=== PATIENT | female | born 1980 | race Two or more races ===

== ENCOUNTER 2024-03-19 08:32 | Emergency (ER) | payer MEDICAID, OTHER ==
[~2024-03-19] VITALS: Ht 162.6 cm; Wt 96.3 kg
[2024-03-19] MEDS: ACETAMINOPHEN 500 MG TAB PO ONE (10:08)
[2024-03-19 10:13] LABS: Urine Bacteria None Seen /hpf (None Seen)
[2024-03-19 10:25] LABS: Urine Blood 1+ /uL (Negative); Urine Clarity Clear (Clear); Urine Color Yellow (Yellow); Urine Mucus FEW (None Seen); Urine Protein, UAD 1+ (Negative); Urine Specific Gravity 1.023 (1.001-1.035); Urine Urobilinogen Normal (Negative); Urine WBC 1 /hpf (0 - 5)
[2024-03-19 11:29] VITALS: BP 119/79; PULSE 100; RESP 18; TEMP 98.7; O2SAT 98
[2024-03-19] MEDS ORDERED: NABU-72 PO (11:33)
[2024-03-19] MEDS ORDERED: CYCL-837 PO (11:33)
== END 2024-03-19 11:34 | disposition home or self-care (01) ==
LOC: ER 08:32
DX: M54.50 Low back pain, unspecified (principal); Z79.899 Other long term (current) drug therapy
CPT/HCPCS: 72100; 81001; 87086

== ENCOUNTER 2024-09-13 08:34 | Day surgery (SDC) | payer MEDICAID ==
[2024-09-11 14:43] LABS: Urine Bacteria None Seen /hpf (None Seen)
[2024-09-11 14:59] LABS: Basophils # (auto) 0.1 10 ^3/uL (0-0.2); Basophils % (auto) 0.7 % (0.0-2.0); Eosinophils # (auto) 0.3 10 ^3/uL (0-0.8); Eosinophils % (auto) 3.6 % (0.0-7.0); Hematocrit 38.3 % (36.0-46.0); Hemoglobin 13.2 g/dL (12.2-16.2); Lymphocytes # (auto) 2.3 10 ^3/uL (0.4-5.4); Lymphocytes % (auto) 31.3 % (10.0-50.0); Mean Corpuscular Hemoglobin 31.1 pg (28.0-32.0); Mean Corpuscular Hgb Conc. 34.4 g/dL (32.0-36.0); Mean Corpuscular Volume 90.5 fL (80.0-100.0); Monocytes # (auto) 0.6 10 ^3/uL (0-1.3); Monocytes % (auto) 8.4 % (0.0-12.0); Neutrophils # (auto) 4.1 10 ^3/uL (1.6-8.6); Platelet Count (auto) 256 10^3/uL (140-450); Red Blood Cells 4.23 10^6/uL (4.0-5.20); Red Cell Distribution Width 14.9 % (11.8-14.3); White Blood Cell 7.3 10^3/uL (4.4-10.8)
[2024-09-11 15:20] LABS: INR 0.99 (0.9-1.15); Prothrombin Time 10.5 sec (9.3-11.8)
[2024-09-11 15:33] LABS: Urine Blood TRACE /uL (Negative); Urine Clarity Clear (Clear); Urine Color Light-Yellow (Yellow); Urine Protein, UAD Negative (Negative); Urine Specific Gravity 1.013 (1.001-1.035); Urine Urobilinogen Normal (Negative); Urine WBC <1 /hpf (0 - 5); Urine pH 6.5 (5.0-9.0)
[2024-09-11 15:40] LABS: Alanine Aminotransferase 28 U/L (7-40); Albumin 4.1 g/dL (3.2-4.8); Alkaline Phosphatase 81 U/L (46-116); Anion Gap 7 (5-15); Aspartate Aminotransferase 24 U/L (13-40); BUN/Creatinine Ratio 10.3 (10.0-20.0); Bilirubin, Total 0.5 mg/dL (0.2-1.0); Blood Urea Nitrogen 9 mg/dL (9-23); Calcium 9.5 mg/dL (8.7-10.4); Carbon Dioxide 26 mmol/L (20-31); Chloride 108 mmol/L (98-107); Glucose 87 mg/dL (74-106); Potassium 4.3 mmol/L (3.5-5.1); Sodium 141 mmol/L (136-145); Total Protein 7.1 g/dL (5.7-8.2)
[~2024-09-13] VITALS: Ht 162.6 cm; Wt 97.1 kg
[~2024-09-13 08:34] MED LIST: CHOL20007 PO; CYCL-837 PO; LEVO100T8 PO; MELO15TA29 PO; METH2.5T PO; NABU-72 PO; PANT40TA2 PO; PRE5T PO
[2024-09-13] MEDS ORDERED: ceFAZolin 2 GM/D5W100ml 100 ML IV ONE (09:24)
[2024-09-13] MEDS ORDERED: fentaNYL CITRATE 100 MCG/2 ML VL ONE (09:39)
[2024-09-13] MEDS ORDERED: GLYCOPYRROLATE 0.2 MG/ML 1ML VIAL ONE (09:39)
[2024-09-13] MEDS ORDERED: PROPOFOL 10 MG/ML 20 ML IV ONE ×2 (09:39→10:35)
[2024-09-13] MEDS ORDERED: DexAMETHasone SOD PHOS 10MG/1ML VIAL INJ ONE (09:39)
[2024-09-13] MEDS ORDERED: KETOROLAC TROMETH 30 MG/ML 1ML VIAL ONE (09:39)
[2024-09-13] MEDS ORDERED: ONDANSETRON HCL 4 MG/2 ML VIAL ONE (09:39)
[2024-09-13] MEDS ORDERED: LIDOCAINE 2% (LOCAL ANESTH.) PF 5ml SDV ONE (09:39)
[2024-09-13] MEDS ORDERED: ACETAMINOPHEN IV 1000 MG/100ML (10MG/ML) IV ONE (10:15)
[2024-09-13] MEDS ORDERED: GABAPENTIN 400 MG CAP PO ONE (10:15)
[2024-09-13] MEDS ORDERED: CELECOXIB 100 MG CAP PO ONE (10:15)
[2024-09-13] MEDS: BUPIVACAINE 0.5% P/F INJ 10 ML VIAL ONE (10:40)
[2024-09-13 11:50] VITALS: PULSE 103; RESP 12; TEMP 98.8; O2SAT 98
--- NOTE | 2024-09-13 11:53 | DVHOP2 ---
Operative Report - 2 Report Details Date: 09/13/24 Preop Diagnosis: 1. Right foot bunion 2. Right foot hammer toes 2-4 3. Right foot tailors bunion 4. Right foot pain Postop Diagnosis: Same as preop Surgeon: Susie Wheeler MD Anesthesiologist: See anesthesia Anesthesia: General Implant: 6 2 K-wire x2 Arthrex K-wires x3 Consent: The patient was informed of the risks and benefits of the procedure. These include but are not limited to complications of anesthesia, postoperative infection, incomplete relief of symptoms, recurrence of symptoms, damage to blood vessels, nerves and tendons, deep venous thrombosis, pulmonary embolism and possible need for repeat surgery in the future. Complications: None Estimated Blood Loss: Minimal Fluids: See anesthesia Findings: Consistent with the diagnosis Indications for Surgery: Worsening right foot pain Name of Procedure Performed 1. Right foot bunionectomy (45425) 2. Right foot hammer toe repair 2nd toe (58571) 3. Right foot hammer toe repair 3rd toe (07184) 4. Right foot hammer toe repair 4th toe (45194) 5. Right foot tailors bunionectomy (51821) Procedure Details Procedure Details: PRE-PROCEDURE INFORMATION: In the pre-op holding area, the extremity to be operated on was clearly marked and the patient verified correct laterality of the marking. The patient was transferred to the OR table and placed in a supine position. A timeout was performed in which identification of the correct patient, procedure, location, and materials was done. The right foot and leg w ere prepped and draped in normal sterile fashion. The foot and leg were exsanguinated and the thigh tourniquet was inflated to 250 mmHg. DESCRIPTION OF PROCEDURE: Attention was directed to the right 1st metatar sophalangeal joint where a stab incision was made at the neck of the 1st metatarsal. Care was taken to avoid damage the neurovascular and tendinous structures. Using intraoperative fluoroscopy and an MIS per, an osteotomy was then made at the neck of the 1st metatarsal. The metatarsal head was then shifted into position aligning the sesamoid bones over the fragment. Using a 6 2 K-wire, the wire was then driven down the shaft of the 1st metatarsal to hold the head in place until the osteotomy has healed. Fluoroscopy verified proper placement of hardware as well as correction of previous bunion deformity. Attention was directed to the right lateral fifth metatarsal head where a stab incision was made. This incision was deepened through blunt and sharp di ssection. Care was taken to avoid damage to neurovascular structures throughout dissection. The incision was carried to the level of the fifth metatarsal head where on intraoperative fluoroscopy as well as preoperative x-rays, it was noted there was no significantly increased lateral deviation angle of the fifth metatarsal, but the lateral aspect of the fifth metatarsal head appeared to be prominent. This indicated that the patient would benefit from an ostectomy of the metatarsal head without osteotomy. Using an MIS bur, an osteotomy was made across the neck of the metatarsal head. Using a 0.62 K wire, the wire was then placed down the shaft of the 5th metatarsal holding the head in the appropriate position. It was noted on intraoperative fluoroscopy, there was significant reduction of deformity Attention was directed to the right dorsal 2nd digit where a linear longitudinal incision was made over the proximal interphalangeal joint gaining access to the joint. The incision was deepened to the level of the extensor tendon. Soft tissue was released about the IPJ. The extensor tendon was transected at the level of the IPJ and using an oscillating saw, the head of the proximal phalanx was resected. Next, the base of the middle phalanx was also resected with an oscillating saw. A K-wire was driven from the distal digit to the level of the proximal phalanx. Utilizing intraoperative fluoroscopy, proper placement of the k-wire with adequate compression of the interphalangeal joint was noted. The end of the k- wire was clipped and bent at the tip, in anticipation that it will be removed in-office at a later time. It was noted on intraoperative fluoroscopy as well as clinically after this hammertoe was corrected that the digit was no longer contracted about the PIPJ or DIPJ Attention was directed to the right dorsal 3rd digit where a linear longitudinal incision was made over the proximal interphalangeal joint gaining access to the joint. The incision was deepened to the level of the extensor tendon. Soft tiss ue was released about the IPJ. The extensor tendon was transected at the level of the IPJ and using an oscillating saw, the head of the proximal phalanx was resected. Next, the base of the middle phalanx was also resected with an oscillating saw. A K-wire was driven from the distal digit to the level of the proximal phalanx. Utilizing intraoperative fluoroscopy, proper placement of the k-wire with adequate compression of the interphalangeal joint was noted. The end of the k- wire was clipped and bent at the tip, in anticipation that it will be removed in-office at a later time. It was noted on intraoperative fluoroscopy as well as clinically after this hammertoe was corrected that the digit was no longer contracted about the PIPJ or DIPJ Attention was directed to the right dorsal 4th digit where a linear longitudinal incision was made over the proximal interphalangeal joint gaining access to the joint. The incision was deepened to the level of the extensor tendon. Soft tissue was released about the IPJ. The extensor tendon was transected at the level of the IPJ and using an oscillating saw, the head of the proximal phalanx was resected. Next, the base of the middle phalanx was also resected with an oscillating saw. A K-wire was driven from the distal digit to the level of the proximal phalanx. Utilizing intraoperative fluoroscopy, proper placement of the k-wire with adequate compression of the interphalangeal joint was noted. The end of the k- wire was clipped and bent at the tip, in anticipation that it will be removed in-office at a later time. It was noted on intraoperative fluoroscopy as well as clinically after this hammertoe was corrected that the digit was no longer contracted about the PIPJ or DIPJ All surgical wounds were irrigated copiously with saline and closed in layers with 2-0 Vicryl, 3-0 Monocryl, 4-0 nylon suture material. A dry sterile dressing was placed on the surgical extremity. The patient was placed in a postop shoe. POSTOPERATIVE INFORMATION: The patient tolerated the above noted procedure and anesthesia well and was transferred to the PACU with vital signs stable, and vascular status intact with capillary refill intact to all digits. Postoperative instructions reviewed in detail with the patient with written instructions provided. Patient will return to clinic in approximately 10-14 days for first postoperative visit. Patient has the number of the clinic and was instructed to call prior to that time should any problems, questions, or concerns arise. Condition Good Disposition Home SUSIE WHEELER DPM Sep 13, 2024 11:53
[2024-09-13] MEDS ORDERED: NALOXONE HCL 0.4 MG/ML VIAL IV PRN (12:00)
[2024-09-13] MEDS ORDERED: FLUMAZENIL 0.1 MG/ML INJ 10ML MDV IV PRN (12:00)
[2024-09-13] MEDS ORDERED: ePHEDrine SULFATE 50 MG/ML AMP IV PRN (12:00)
[2024-09-13] MEDS ORDERED: hydrALAZINE HCL 20 MG/ML VL IV PRN (12:00)
[2024-09-13] MEDS ORDERED: fentaNYL CITRATE 100 MCG/2 ML VL IV PRN (12:00)
[2024-09-13] MEDS ORDERED: oxyCODONE HCL 5MG TAB PO PRN (12:00)
[2024-09-13] MEDS ORDERED: HYDROmorphone HCL 2 MG/ML VL/or syr IV PRN (12:00)
[2024-09-13] MEDS ORDERED: ONDANSETRON HCL 4 MG/2 ML VIAL IV PRN (12:00)
[2024-09-13 12:30] VITALS: BP 122/77; PULSE 86; RESP 17; O2SAT 96
== END 2024-09-13 12:50 | disposition home or self-care (01) ==
LOC: SUR 08:34
PROVIDERS: ATTEND Podiatrist
DX: M20.41 Other hammer toe(s) (acquired), right foot (principal); M21.611 Bunion of right foot; M21.621 Bunionette of right foot; K21.9 Gastro-esophageal reflux disease without esophagitis; M06.9 Rheumatoid arthritis, unspecified; E03.9 Hypothyroidism, unspecified; E66.01 Morbid (severe) obesity due to excess calories; Z98.890 Other specified postprocedural states; Z68.36 Body mass index [BMI] 36.0-36.9, adult; Z90.49 Acquired absence of other specified parts of digestive tract; Z79.899 Other long term (current) drug therapy; Z79.890 Hormone replacement therapy
CPT/HCPCS: 28285; 28296; 28308; 36415; 80053; 81001; 84702; 85025; 85610; 85730; C1713; J1100; J1885; J2003; J2405; J2704; J3010; J3490

== ENCOUNTER 2025-07-18 11:16 | Day surgery (SDC) | payer MEDICAID ==
[2025-07-13 11:12] LABS: Hematocrit 40.7 % (36.0-46.0); Hemoglobin 13.4 g/dL (12.2-16.2); Mean Corpuscular Hemoglobin 30.1 pg (28.0-32.0); Mean Corpuscular Volume 91.4 fL (80.0-100.0); Nucleated Red Blood Cells % 0.0 %
[2025-07-13 11:18] LABS: Urine Protein, UAD Negative (Negative)
[2025-07-13 11:28] LABS: INR 1.0 (0.9-1.15); Partial Thromboplastin Time 28.9 SEC (24.5-34.5); Prothrombin Time 10.6 sec (9.3-11.8)
[2025-07-13 12:14] LABS: Alanine Aminotransferase 14 U/L (7-40); Alkaline Phosphatase 76 U/L (46-116); Anion Gap 7 (5-15); BUN/Creatinine Ratio 7.6 (10.0-20.0); Calcium 9.1 mg/dL (8.7-10.4); Carbon Dioxide 29 mmol/L (20-31); Chloride 106 mmol/L (98-107); Glucose 75 mg/dL (74-106); Potassium 4.4 mmol/L (3.5-5.1); Sodium 142 mmol/L (136-145); Total Protein 7.2 g/dL (5.7-8.2)
[2025-07-13 12:15] LABS: Albumin 4.2 g/dL (3.2-4.8); Bilirubin, Total 0.8 mg/dL (0.2-1.0)
[2025-07-13 12:17] LABS: Blood Urea Nitrogen 6 mg/dL (9-23)
[~2025-07-18] VITALS: Ht 162.6 cm; Wt 95.3 kg
[~2025-07-18 11:16] MED LIST changes: -CHOL20007 PO; +CHOLCAP11 PO; -CYCL-837 PO; +DOCU-94 PO; +GUAI200T6 PO; +LACT10SO3 PO; +LEUC5TAB PO; -MELO15TA29 PO; -NABU-72 PO; +[UNRECOGNIZED DRUG - CODE] XX
[2025-07-18] MEDS ORDERED: ONDANSETRON HCL 4 MG/2 ML VIAL IV PRN (12:30)
[2025-07-18] MEDS ORDERED: HYDROmorphone HCL 2 MG/ML VL/or syr IV PRN (12:30)
[2025-07-18] MEDS ORDERED: MIDAZOLAM HCL 2MG/2ML 2ml VIAL (1mg/ml) ONE (12:36)
[2025-07-18] MEDS ORDERED: fentaNYL CITRATE 100 MCG/2 ML VL ONE (12:36)
[2025-07-18] MEDS ORDERED: ONDANSETRON HCL 4 MG/2 ML VIAL ONE (12:37)
[2025-07-18] MEDS ORDERED: METOCLOPRAMIDE HCL 5MG/ml INJ 2ml VIAL ONE (12:37)
[2025-07-18] MEDS: ceFAZolin 1GM/50ML 100 ML IV ONE (12:38)
[2025-07-18] MEDS: LIDOCAINE 1% HCL (LOCAL ANESTH.) INJ 20ML MDV ONE ×2 (12:52)
[2025-07-18] MEDS ORDERED: PROPOFOL 10 MG/ML 20 ML IV ONE (13:03)
[2025-07-18 13:09] VITALS: PULSE 79; RESP 12; TEMP 97.1; O2SAT 96
--- NOTE | 2025-07-18 13:12 | DVHOP2 ---
Operative Report - 2 Report Details Date: 07/18/25 Preop Diagnosis: 1. Left foot 2nd hammer toe 2. Left foot 3rd hammer toe 3. Left foot 4th hammer toe 4. Left foot 5th hammer toe 5. Left foot tailors bunion 6. Left foot pain Postop Diagnosis: Same as preop Surgeon: Susie Wheeler MD Anesthesiologist: See anesthesia Anesthesia: General Implant: 6 2 K-wire Consent: The patient was informed of the risks and benefits of the procedure. These include but are not limited to complications of anesthesia, postoperative infection, incomplete relief of symptoms, recurrence of symptoms, damage to blood vessels, nerves and tendons, deep venous thrombosis, pulmonary embolism and possible need for repeat surgery in the future. Complications: None Estimated Blood Loss: Minimal Fluids: See anesthesia Findings: Consistent with diagnosis Indications for Surgery: Worsening left foot pain Name of Procedure Performed 1. Left 2nd hammer toe repair (66010) 2. Left 3rd hammer toe repair (17262) 3. Left 4th hammer toe repair (43313) 4. Left 5th hammer toe repair (39451) 5. Left foot tailors bunionectomy (35871) Procedure Details Procedure Details: PRE-PROCEDURE INFORMATION: In the pre-op holding area, the extremity to be operated on was clearly marked and the patient verified correct laterality of the marking. The patient was transferred to the OR table and placed in a supine position. A timeout was performed in which identification of the correct patient, procedure, location, and materials was done. The left foot and leg were prepped and draped in normal sterile fashion. DESCRIPTION OF PROCEDURE: Attention was directed to the left 2nd where hammertoe was located was located. A stab incision was made medial to the toe. The incision was deepened through blunt and sharp dissection. Care was taken to avoid any neurovascular and tendinous structures. Using the Arthrex MIS bur, an osteotomy was performed and correction of the rigid hammertoe was noted. After the bur was used the exostosis was no longer felt clinically. The incision was closed with a 4-0 nylon. Attention was directed to the left 3rd where hammertoe was located was located. A stab incision was made medial to the toe. The incision was deepened through blunt and sharp dissection. Care was taken to avoid any neurovascular and tendinous structures. Using the Arthrex MIS bur, an osteotomy was performed and correction of the rigid hammertoe was noted. After the bur was used the exostosis was no longer felt clinically. The incision was closed with a 4-0 nylon. Attention was directed to the left 4th where hammertoe was located was located. A stab incision was made medial to the toe. The incision was deepened through blunt and sharp dissection. Care was taken to avoid any neurovascular and tendinous structures. Using the Arthrex MIS bur, an osteotomy was performed and correction of the rigid hammertoe was noted. After the bur was used the e xostosis was no longer felt clinically. The incision was closed with a 4-0 nylon. Attention was directed to the left 5th where hammertoe was located was located. A stab incision was made medial to the toe. The incision was deepened through blunt and sharp dissection. Care was taken to avoid any neurovascular and tendinous structures. Using the Arthrex MIS bur, an osteotomy was performed and correction of the rigid hammertoe was noted. After the bur was used the exostosis was no longer felt clinically. The incision was closed with a 4-0 nylon. Attention was directed to the left lateral fifth metatarsal head where a stab incision was made. This incision was deepened through blunt and sharp dissection. Care was taken to avoid damage to neurovascular structures throughout dissection. The incision was carried to the level of the fifth metatarsal head, it was noted there was no significantly increased lateral deviation angle of the fifth metatarsal, but the lateral aspect of the fifth metatarsal head appeared to be prominent. This indicated that the patient would benefit from an ostectomy of the metatarsal head without osteotomy. Using an MIS bur, an osteotomy was made across the neck of the metatarsal head. Using a 0.62 K wire, the wire was then placed down the shaft of the 5th metatarsal holding the head in the appropriate position. All surgical wounds were irrigated copiously with saline and closed in layers with the aforementioned suture material. A dry sterile dressing was placed on the surgical extremity. The patient was placed in a cam boot POSTOPERATIVE INFORMATION: The patient tolerated the above noted procedure and anesthesia well and was transferred to the PACU with vital signs stable, and vascular status intact with capillary refill intact to all digits. Postoperative instructions reviewed in detail with the patient with written instructions provided. Patient will return to clinic in approximately 10-14 days for first postoperative visit. Patient has the number of the clinic and was instructed to call prior to that time should any problems, questions, or concerns arise. Condition Good Disposition Home Visit Coding Podiatry Date of Service if different f: Jul 18, 2025 Billing Provider: SUSIE WHEELER DPM Podiatry Common Visit Codes: PROCEDURE ONLY SUSIE WHEELER DPM Jul 18, 2025 13:12
[2025-07-18] MEDS: KETOROLAC TROMETH 30 MG/ML 1ML VIAL IV ONE (13:39)
[2025-07-18 14:00] VITALS: BP 102/65; PULSE 64; RESP 15; O2SAT 99
== END 2025-07-18 14:19 | disposition home or self-care (01) ==
LOC: SUR 11:16
PROVIDERS: ATTEND Podiatrist
DX: M20.42 Other hammer toe(s) (acquired), left foot (principal); M21.622 Bunionette of left foot; M79.672 Pain in left foot; E66.01 Morbid (severe) obesity due to excess calories; E03.9 Hypothyroidism, unspecified
CPT/HCPCS: 28285; 28308; 36415; 80053; 81001; 81025; 85025; 85610; 85730; J0690; J1885; J2003; J2250; J2405; J2704; J2765; J3010